=== PATIENT | male | born 1950 | race Caucasian/White ===

== ENCOUNTER 2021-02-28 06:52 | Inpatient (IN) | payer MEDICARE, OTHER ==
[~2021-02-28] VITALS: Ht 170.2 cm; Wt 77.1 kg
[2021-02-28 07:48] LABS: BASOPHILS % (AUTO) 0.5 % (0.0-2.0); EOSINOPHILS % (AUTO) 1.7 % (0.0-6.0); HEMATOCRIT 37 % (39-51); HEMOGLOBIN 12.2 g/dL (13.5-17.5); LYMPHOCYTES # (AUTO) 1.2 K/uL (0.8-4.8); LYMPHOCYTES % (AUTO) 22.9 % (20.0-44.0); MEAN CORPUSCULAR HGB CONC 33 g/dl (31.0-36.0); MEAN CORPUSCULAR VOLUME 91 fL (80-96); MONOCYTES # (AUTO) 0.3 K/uL (0.1-1.30); MONOCYTES % (AUTO) 4.9 % (2.0-12.0); NEUTROPHILS # (AUTO) 3.7 K/uL (1.8-8.9); PLATELET COUNT (AUTO) 189 K/uL (150-450); RED BLOOD CELL COUNT(AUTO) 4.07 MIL/uL (4.5-6.0); WHITE BLOOD COUNT (AUTO) 5.2 K/uL (4.3-11.0)
[2021-02-28 07:58] LABS: CALCIUM, SERUM 9.1 mg/dL (8.5-10.1); CARBON DIOXIDE 25 mmol/L (21-32); CHLORIDE 99 mmol/L (98-107); CREATININE 1.2 mg/dL (0.6-1.3); GLUCOSE 311 mg/dL (74-106); POTASSIUM 4.2 mmol/L (3.5-5.1); SODIUM SERUM 137 mmol/L (136-145); UREA NITROGEN, BLOOD 18 mg/dL (7-18)
[2021-02-28] MEDS ORDERED: ASPIRIN 81 MG TAB.CHEW ONE (08:00)
[2021-02-28] MEDS ORDERED: ASPIRIN 81 MG TAB.CHEW PO ONE (08:00)
[2021-02-28 08:05] LABS: CHOLESTEROL 160 mg/dL (<200); HDL CHOLESTEROL 38 mg/dL (40-60); LDL 87 mg/dL (0-99); TRIGLYCERIDES 185 mg/dL (30-150)
[2021-02-28] MEDS ORDERED: INSULIN REGULAR, HUMAN 100 UNIT/ML 10 ML VIAL IV ONE (08:30)
[2021-02-28] MEDS ORDERED: IV NS 0.9% 1,000 ML BAG IV ONE (08:30)
[2021-02-28] MEDS ORDERED: INSULIN REGULAR, HUMAN 100 UNIT/ML 10 ML VIAL ONE (08:46)
[2021-02-28] MEDS ORDERED: OMEP20CA15 PO (09:19)
[2021-02-28] MEDS ORDERED: TAMS-12 PO (09:19)
[2021-02-28] MEDS ORDERED: FERR325T23 PO (09:19)
[2021-02-28] MEDS ORDERED: ATOR10TA PO (09:19)
[2021-02-28] MEDS ORDERED: GLIM4TAB37 PO (09:19)
[2021-02-28] MEDS ORDERED: METF-442 PO (09:19)
[2021-02-28] MEDS ORDERED: ASPI-1169 PO (09:19)
[2021-02-28] MEDS ORDERED: BENA40TA8 PO (09:19)
[2021-02-28 11:32] LABS: BILIRUBIN,DIRECT 0.1 mg/dL (0.0-0.2); BILIRUBIN,TOTAL 0.4 mg/dL (0.2-1.0)
[2021-02-28 14:29] LABS: THYROID STIMULATING HORMONE 1.263 uIU/mL (0.358-3.74)
[2021-02-28] MEDS ORDERED: TAMSULOSIN 0.4 MG CAP.SR.24H ONE (17:02)
[2021-02-28] MEDS ORDERED: METFORMIN 500 MG TABLET ONE (17:02)
[2021-02-28] MEDS ORDERED: AMOX500C2 PO (17:05)
[2021-02-28] MEDS: METFORMIN 500 MG TABLET PO SCH (17:17)
[2021-02-28] MEDS: TAMSULOSIN 0.4 MG CAP.SR.24H PO SCH (17:17)
[2021-02-28] MEDS ORDERED: AMOXICILLIN TRIHYDRATE 250 MG CAPSULE ONE (17:18)
[2021-02-28] MEDS: AMOXICILLIN TRIHYDRATE 250 MG CAPSULE PO SCH (17:24)
[2021-02-28] MEDS: BLOOD SUGAR DIAGNOSTIC 1 EACH STRIP IN SCH ×2 (17:34→21:08)
[2021-02-28] MEDS ORDERED: BLOOD SUGAR DIAGNOSTIC 1 EACH STRIP IN SCH (18:00)
[2021-02-28 20:00] VITALS: BP 134/61
[2021-02-28] MEDS ORDERED: ACETAMINOPHEN 650 MG/20.3 ML UDC PO PRN (21:00)
[2021-02-28 21:29] VITALS: BP 134/61
[2021-02-28] MEDS ORDERED: ACETAMINOPHEN 325 MG TABLET PO PRN ×2 (21:30)
[2021-02-28] MEDS ORDERED: ATORVASTATIN 40 MG TABLET PO SCH (22:00)
[2021-03-01] VITALS: BP 100/53
[2021-03-01 04:00] VITALS: BP_SYST 100; BP_SYST 117; BP_DIAS 53; BP_DIAS 56
[2021-03-01] MEDS ORDERED: DEXTROSE 50%-WATER 50 ML DISP.SYRIN IV PRN (05:30)
[2021-03-01] MEDS: BLOOD SUGAR DIAGNOSTIC 1 EACH STRIP IN SCH ×3 (06:32→17:15)
[2021-03-01] MEDS: INSULIN REGULAR, HUMAN 100 UNIT/ML 3 ML VIAL SQ PRN ×2 (06:34→11:21)
[2021-03-01 06:42] LABS: BASOPHILS % (AUTO) 0.5 % (0.0-2.0); EOSINOPHILS % (AUTO) 1.8 % (0.0-6.0); HEMATOCRIT 36 % (39-51); HEMOGLOBIN 12.2 g/dL (13.5-17.5); LYMPHOCYTES # (AUTO) 1.6 K/uL (0.8-4.8); LYMPHOCYTES % (AUTO) 26.7 % (20.0-44.0); MEAN CORPUSCULAR HGB CONC 34 g/dl (31.0-36.0); MEAN CORPUSCULAR VOLUME 91 fL (80-96); MONOCYTES # (AUTO) 0.4 K/uL (0.1-1.30); MONOCYTES % (AUTO) 6.3 % (2.0-12.0); NEUTROPHILS # (AUTO) 3.9 K/uL (1.8-8.9); NEUTROPHILS % (AUTO) 64.7 % (43.0-81.0); PLATELET COUNT (AUTO) 191 K/uL (150-450); RED BLOOD CELL COUNT(AUTO) 3.99 MIL/uL (4.5-6.0)
[2021-03-01 07:01] LABS: CALCIUM, SERUM 8.7 mg/dL (8.5-10.1); CREATININE 1.1 mg/dL (0.6-1.3); POTASSIUM 4.3 mmol/L (3.5-5.1)
[2021-03-01] MEDS ORDERED: PANTOPRAZOLE 40 MG TABLET.DR PO SCH (07:30)
[2021-03-01 08:00] VITALS: BP 136/73
[2021-03-01] MEDS: AMOXICILLIN TRIHYDRATE 250 MG CAPSULE PO SCH ×3 (08:45→17:15)
[2021-03-01] MEDS: METFORMIN 500 MG TABLET PO SCH ×2 (08:45→17:15)
[2021-03-01] MEDS: TAMSULOSIN 0.4 MG CAP.SR.24H PO SCH ×2 (08:45→17:15)
[2021-03-01] MEDS ORDERED: FERROUS SULFATE (325 MG) 325 MG/TAB TABLET PO SCH (09:00)
[2021-03-01] MEDS ORDERED: BENAZEPRIL HCL 20 MG TABLET PO SCH (09:00)
[2021-03-01] MEDS ORDERED: ASPIRIN 81 MG TAB.CHEW PO SCH (09:00)
[2021-03-01] MEDS ORDERED: GLIMEPIRIDE 4 MG TABLET PO SCH (09:00)
[2021-03-01] MEDS ORDERED: ATOR40TA PO (13:58)
[2021-03-01 16:00] VITALS: BP 134/67
[2021-03-01] MEDS ORDERED: CLOPIDOGREL BISULFATE 75 MG TABLET PO SCH (16:30)
[2021-03-02] MEDS ORDERED: CLOPIDOGREL BISULFATE 75 MG TABLET PO SCH (09:00)
== END 2021-03-01 18:28 | disposition home or self-care (01) | DRG 69 ==
LOC: ER 06:54 → TRANSITION 08:32 → TELE 17:35 → MED 03-01 14:43
DX: G45.9 Transient cerebral ischemic attack, unspecified (principal); E87.2 Acidosis; E11.65 Type 2 diabetes mellitus with hyperglycemia; Z20.822 Contact with and (suspected) exposure to COVID-19; I10 Essential (primary) hypertension; J32.9 Chronic sinusitis, unspecified; Z79.82 Long term (current) use of aspirin; Z79.84 Long term (current) use of oral hypoglycemic drugs; Z79.899 Other long term (current) drug therapy
CPT/HCPCS: 36415; 70450-TC; 71045-TC; 80048-TC; 80061-TC; 82247-TC; 82248-TC; 82962-TC; 83605-TC; 83880; 84443-TC; 84484-TC; 85025-TC; 85652-TC; 85730-TC; 87040-TC; 87081-TC; 93307-TC; 93880-TC; 97112-TC; 97116-TC; 97530-TC; G0378; J1815; J7030